=== PATIENT | female | born 1995 ===

== ENCOUNTER 2022-11-13 10:01 | Emergency (ER) | payer MEDICAID ==
[~2022-11-13] VITALS: Ht 170.2 cm; Wt 72.6 kg
[2022-11-13 10:17] VITALS: BP 103/64
[2022-11-13 10:29] VITALS: BP 103/64
[2022-11-13] MEDS ORDERED: IBUP-2213 PO ×2 (10:29→10:43)
[2022-11-13] MEDS ORDERED: PENI500T20 PO ×2 (10:29→10:43)
== END 2022-11-13 10:29 | disposition home or self-care (01) ==
LOC: MED 10:01
DX: K04.7 Periapical abscess without sinus (principal); K03.81 Cracked tooth; Z79.1 Long term (current) use of non-steroidal anti-inflammatories (NSAID); Z79.2 Long term (current) use of antibiotics
CPT/HCPCS: 99283